=== PATIENT | male | born 1970 | race Caucasian/White ===

== ENCOUNTER 2016-07-14 10:56 | Emergency (ER) | payer MEDICAID ==
[2016-07-14] MEDS ORDERED: VANCOMYCIN HCL/NORMAL SALINE 250 ML IV ONE (12:11)
[2016-07-14 13:00] LABS: % IMMATURE GRANULYOCYTES 0.2 % (0.0-1.1); ABSOLUTE IMMATURE GRANULOCYTES 0.02 10^3/uL (0.00-0.10); ADD DIFF? NO; ADD MORPH? NO; ADD SCAN? NO; ATYPICAL LYMPHOCYTE FLAG 20 (0-99); FRAGMENT RBC FLAG 0 (0-99); HEMATOCRIT 39.7 % (40.0-51.0); HEMOGLOBIN 14.1 g/dL (13.7-17.5); LEFT SHIFT FLG 0 (0-99); LIPEMIA HEMOLYSIS FLAG 90 (0-99); MEAN CELL HEMOGLOBIN CONCENTR. 35.5 g/dL (32.4-36.7); MEAN CELL VOLUME 90.2 fL (81.5-99.8); MEAN PLATELET VOLUME 10.3 fL (8.7-11.7); PLATELET CLUMPS FLAG 0 (0-99); PLATELET COUNT 265 10^3/uL (150-400); RED CELL DISTRIBUTION WIDTH 12.1 % (11.5-15.2)
[2016-07-14 13:14] LABS: ANION GAP 10 mEq/L (8-16); CARBON DIOXIDE 23 mEq/l (22-31); CHLORIDE 106 mEq/L (97-110); CREATININE 0.9 mg/dL (0.7-1.3); GLOMERULAR FILTRATION RATE > 60; GLUCOSE 92 mg/dL (70-100); POTASSIUM 4.2 mEq/L (3.5-5.2); SODIUM 139 mEq/L (134-144)
--- NOTE | 2016-07-14 14:10 | EDPHY ---
H & P Stated Complaint: hand abcess, started thursday, puss today - Personal History Current Tetanus/Diphtheria Vaccine: Yes Current Tetanus Diphtheria and Acellular Pertussis (TDAP): Yes - Medical/Surgical History Hx Asthma: No Hx Chronic Respiratory Disease: No Hx Diabetes: No Hx Cardiac Disease: No Hx Renal Disease: No Hx Cirrhosis: No Hx Alcoholism: No Hx HIV/AIDS: No Hx Splenectomy or Spleen Trauma: No Other PMH: PMH:none. PSH:choly, - Social History Smoking Status: Never smoked HPI/ROS: Chief complaint: Right hand infection History of present illness: 45-year-old male presents to the emergency department for evaluation of a right hand infection. Patient reports approximately 2 days ago he noted a lesion on the top of his hand. He states there has been increasing pain and swelling around the lesion. He states his whole hand is now starting to turn red, is warm and hurts. He feels it is radiating up into the arm. He denies precipitating factors. He denies alleviating factors. He denies other associated signs or symptoms. Review of systems: A 10 point review of systems was obtained and other than described above was negative ([place]) - Physical Exam Exam: General: Alert, nontoxic Skin: There is a wound over the dorsum of the right hand draining pus. Induration around on palpation. The hand is erythematous and edematous with extension up onto the wrist. There is lymphatic streaking up to the level of the mid arm. Musculoskeletal: Patient is moving the digits in the right hand, the right wrist, right elbow and right shoulder well. Vascular: Capillary refill brisk in the digits of the right hand. Radial pulses 2+. Neurologic: Sensation intact throughout the right arm. ([place]) Constitutional: Initial Vital Signs Temperature (C) 36.5 C 07/14/16 11:01 Heart Rate 78 07/14/16 11:01 Respiratory Rate 16 07/14/16 11:01 Blood Pressure 126/63 H 07/14/16 11:01 O2 Sat (%) 93 07/14/16 11:01 O2 Delivery Mode Room Air Allergies/Adverse Reactions: No Known Allergies Allergy (Unverified 07/14/16 11:03) Home Medications: Medication Instructions Recorded Cephalexin [Keflex] 500 mg PO QID 10 Days 05/15/17 Sulfamethox/Tmp 800/160 mg 1 tab PO BID 10 Days 07/14/16 [Bactrim Ds] Medical Decision Making Procedures: Procedure: Abscess drainage. The patient's abscess was located on the right hand. I obtained verbal consent from the patient to drain the abscess who was informed about the possibility of bleeding and pain. The abscess was incised with a scalpel and a small amount of purulent drainage was expressed. The patient tolerated the procedure well. The procedure was performed by myself. ([place]) ED Course/Re-evaluation: Patient is seen in conjunction with my secondary supervising physician Dr. Enedina Henson. Patient presents to the emergency department for evaluation of a possible hand infection. Patient appears to have an abscess on his hand that has been incised and drained, there is an associated cellulitis with significant lymphangitis. I have discussed with the patient concern for serious infection. I have recommended hospitalization for IV antibiotics and Hand surgery consult. Patient has declined. Dr. Henson has also discussed this with the patient and he continues to decline. I have had a lengthy discussion with him that this could worsen and result in a more severe infection that could result in the loss of the limb or even . He has voiced understanding and would still like to be discharged. He is competent to make this decision. He is given oral antibiotics. He is asked to follow up with a primary care doctor for recheck. Strict return precautions are given. Patient did leave AMA. ([place]) Differential Diagnosis: Included but not limited to cellulitis, abscess, lymphangitis, infectious tenosynovitis, osteomyelitis, necrotizing fasciitis ([place]) Other Provider: I examined this patient along with WILLY Mccrary. On exam the patient is non- toxic appearing. His right hand is erythematous and edematous, most markedly so over the dorsal MCP of the index finger, where there is a scabbed central wound that is draining a small amount of pus. Pus can be expressed from this area. There is lymphangitic streaking up the forearm to the elbow. No tenosynovitis of digits. He has FAROM of all digits of the right hand, the right wrist and the right elbow. Sensation is intact to LT over RUE. Right radial pulse is 2+. I spoke at some length with the patient, encouraging him to accept admission for IV antibiotics. He refuses admission. He is able to make his own medical decisions and understands that worsening infection could result in loss of limb , dysfunction, even . He does agree that he will seek follow up and that he will take the oral abx. He leaves AMA, with the understanding that he can return at any time. (Enedina Henson) - Data Points Laboratory Results: Laboratory Results 07/14/16 12:33 07/14/16 12:33 Microbiology Results: MICROBIOLOGY 07/14/16 12:40 Hand - Swab Gram Stain - Final 07/14/16 12:40 Hand - Swab Wound Culture - Preliminary MRSA Medications Given: Discontinued Medications Vancomycin/Sodium Chloride (Vancomycin 1 Gm (Premix)) 250 mls @ 250 mls/hr IV EDNOW ONE PRN Reason: Protocol Stop: 07/14/16 13:10 Last Admin: 07/14/16 12:35 Dose: 250 mls Departure - Departure Disposition: Home, Routine, Self-Care Clinical Impression: Cellulitis of hand, Lymphangitis Condition: Good Instructions: Cellulitis (ED), Lymphangitis (ED) Additional Instructions: We have offered you admission to the hospital. You have declined. This is against medical advice. You have a series infection. If this is not treated properly it could potentially result in long-term disability, loss of part or your hand or even . If at any time you would like admission please return to the emergency room. Please consider going to an emergency room in 12 hours for a repeat dose of vancomycin, you received 1 g IV. Take all antibiotics as prescribed. If symptoms worsen or new symptoms develop return to the emergency room for recheck. Referrals: NONE *PRIMARY CARE P,. [Primary Care Provider] - As per Instructions [facility],. [Clinic] - As per Instructions Prescriptions: Cephalexin [Keflex] 500 mg PO QID 10 Days Sulfamethox/Tmp 800/160 mg [Bactrim Ds] 1 tab PO BID 10 Days
[2016-07-14 14:55] VITALS: BP 125/74; PULSE 68; RESP 18; TEMP 97.9; O2SAT 97
== END 2016-07-14 14:57 | disposition home or self-care (01) ==
PROC: 0J9J0ZZ Drainage of Right Hand Subcutaneous Tissue and Fascia, Open Approach (ICD-10-PCS; principal; 2016-07-14)
DX: L03.113 Cellulitis of right upper limb (principal)
CPT/HCPCS: 96365; J3370